=== PATIENT | female | born 1940 | race Caucasian/White ===

== ENCOUNTER → 2016-04-18 | Outpatient (CLI) | payer MEDICARE, BC | LOC: MW.CHORTHO 08:00 | PROVIDERS: ATTEND Physician Assistant | DX: M75.01 Adhesive capsulitis of right shoulder (principal) | CPT/HCPCS: G0463 ==

== ENCOUNTER 2016-06-12 18:34 | Observation (INO) | payer MEDICARE, BC ==
[2016-06-12] MEDS ORDERED: Sodium Chloride 0.9% 1,000 ML IV ONE ×2 (19:00→19:05)
[2016-06-12] MEDS ORDERED: Sodium Chloride 0.9% 10 ML Syringe FLUSH PRN ×2 (19:05)
[2016-06-12] MEDS ORDERED: Sodium Chloride 0.9% 2.5 ML Syringe FLUSH PRN ×2 (19:05)
[2016-06-12 19:24] LABS: CHLORIDE,CL 103 mmol/L (98-110); SODIUM,NA 140 mmol/L (136-146)
--- NOTE | 2016-06-12 19:37 | EDM.PDOC ---
ED HPI NEURO - General Chief Complaint: Neuro Symptoms/Deficits Stated Complaint: PT FELL AT HOME Time Seen by Provider: 06/12/16 18:35 Source of Information: Reports: EMS, Family History Limitations: Reports: Altered mental status - History of Present Illness INITIAL COMMENTS - FREE TEXT/NARRATIVE: HISTORY AND PHYSICAL: History of present illness: [75-year-old female with a history of depression on sertraline no other known medical problems or medications has lived alone and is ambulatory and functional with all her ADL now brought in by EMS after being found down unresponsive. Patient was last communicated with a known to be normal last night. Tonight she was unable to be reached and one daughter went to check on her she was found on the floor unconscious with agonal respirations. EMS was called and responded. Patient was intubated prehospital. GCS 3 prehospital and on arrival with right pupillary dilation consistent with herniation. Per EMS patient is full code and in my not present in ED yet for consultation. Review of systems: As per history of present illness and below otherwise all systems reviewed and negative. Past medical history: As per history of present illness and as reviewed below otherwise noncontributory. Surgical history: As per history of present illness and as reviewed below otherwise noncontributory. Social history: No reported history of drug or alcohol abuse. Family history: As per history of present illness and as reviewed below otherwise noncontributory. Physical exam: HEENT: Soft tissue swelling right for head and periorbital area. Right pupil 6 mm and unresponsive left pupil 4 mm and unresponsive. normocephalic, negative for conjunctival pallor or scleral icterus, mucous membranes moist, throat clear , neck supple, trachea midline, ET tube exiting mouth gurgling sound consistent with displaced tube versus balloon leak. Lungs: Mild bilateral rhonchi, breath sounds equal bilaterally, chest with no asymmetry. Heart: S1S2, regular, negative for clicks, rubs, or JVD. Abdomen: Soft, nondistended, Negative for masses or hepatosplenomegaly. Pelvis: Stable Genitourinary: Mild erythema of external genitalia consistent with tinea Rectal: Deferred. Extremities: Atraumatic, negative for cords or asymmetry bilateral feet plantarflex and cool. Neuro: GCS 3 . Pupils asymmetric with right pupil dilation and unresponsive. Diagnostics: [CT of the head with large right intraparenchymal bleed with obliteration of right lateral ventricle severe midline shift, no evidence of displaced cranial fracture] EKG with normal sinus tachycardia at [address] and T-wave findings no STEMI Therapeutics: [Endotracheal intubation performed on arrival, IV fluids initiated, systolic blood pressure initially 140 on reevaluation with hypotension IV fluids running. Impression: [Altered mental status Uncal herniation] Right-sided Intraparenchymal bleed Acute hemorrhagic CVA Plan: [Arrival history was provided patient was full code. Intubation was assessed and deemed to be esophageal so patient was intubated endotracheally. Bilateral breath sounds symmetrical. Patient was sent to CAT scan without delay. Family arrived in ED and case was discussed in confidential family room. They're aware of patient's immediately life-threatening critical illness and very grave prognosis. Daughter clarifies the patient is actually DO NOT RESUSCITATE and that she previously expressed those wishes multiple times. Family wishes not to discontinue ventilation and care at this point as they anticipate further family arriving to collaborate in decision-making and shared anticipatory grief. CT results with Large right intraparenchymal bleed identified and patient 's clinical evidence of uncal herniation. ] This discussed with Dr. 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 He is aware the patient is DO NOT RESUSCITATE and supportive care only. Family will communicate with him regarding shared decision-making with respect to possible discontinuation of care. Critical care 72 minutes. Definitive disposition and diagnosis as appropriate pending reevaluation and review of above. - Related Data Allergies/ADRs: Allergies Allergy/AdvReac Type Severity Reaction Status Date / Time hydrocodone Allergy Nausea Verified 09/08/15 15:15 levofloxacin [From Levaquin] Allergy Cannot Verified 09/08/15 14:05 Remember methylprednisolone Allergy Cannot Verified 09/08/15 14:05 Remember nitrofurantoin Allergy Cannot Verified 09/08/15 14:05 Remember Penicillins Allergy Cannot Verified 09/08/15 14:05 Remember simvastatin [From Zocor] Allergy Cannot Verified 09/08/15 14:05 Remember Sulfa (Sulfonamide Allergy Cannot Verified 09/08/15 14:05 Antibiotics) Remember see scanned sheet Allergy Other Uncoded 10/24/15 16:30 Home Meds: Home Meds Aspirin [Halfprin] 81 mg PO ONETIME 08/28/15 [History] Sertraline [Zoloft] 100 mg PO DAILY 08/28/15 [History] Cyclobenzaprine HCl 5 mg PO QAM PRN #45 tablet 03/09/16 [Rx] Past Medical History - Past Health History Medical/Surgical History: Denies Medical/Surgical History Genitourinary History: Reports: UTI, recurrent 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: Musculoskeletal History: Reports: Fracture Neurological History: Reports: Headaches, chronic Psychiatric History: Reports: Anxiety, Depression - Infectious Disease History Infectious Disease History: Reports: None Social & Family History - Family History Family Medical History: Noncontributory - Tobacco Use Smoking Status *Q: Never Smoker Second Hand Smoke Exposure: No - Recreational Drug Use Recreational Drug Use: No ED ROS GENERAL - Review of Systems Review Of Systems: See Below (Per history of present illness) ED EXAM, NEURO - Physical Exam Exam: See Below (Per history of present illness) Course - Orders/Labs/Meds Orders: Active Orders 24 hr Category Date Time Status EKG Documentation Completion [RC] STAT Care 06/12/16 19:05 Ordered Peripheral IV Care [RC] . DIRECTED Care 06/12/16 19:05 Ordered Chest 1V Frontal [CR] Stat Exams 06/12/16 19:05 Ordered Head wo Cont [CT] Stat Exams 06/12/16 19:05 Ordered CBC WITH AUTO DIFF [HEME] Stat Lab 06/12/16 19:05 Ordered COMPREHENSIVE METABOLIC PN,CMP [CHEM] Stat Lab 06/12/16 19:05 Ordered TROPONIN I [CHEM] Stat Lab 06/12/16 19:05 Ordered UA W/MICROSCOPIC [URIN] Stat Lab 06/12/16 19:05 Uncollected Sodium Chloride 0.9% [Normal Saline] 1,000 ml Med 06/12/16 19:05 Ordered IV .Bolus Sodium Chloride 0.9% [Saline Flush] Med 06/12/16 19:05 Ordered 10 ml FLUSH ASDIRECTED PRN Sodium Chloride 0.9% [Saline Flush] Med 06/12/16 19:05 Ordered 10 ml FLUSH ASDIRECTED PRN Sodium Chloride 0.9% [Saline Flush] Med 06/12/16 19:05 Ordered 2.5 ml FLUSH ASDIRECTED PRN Sodium Chloride 0.9% [Saline Flush] Med 06/12/16 19:05 Ordered 2.5 ml FLUSH ASDIRECTED PRN Peripheral IV Insertion Adult [OM.PC] Stat Oth 06/12/16 19:05 Ordered Medication Orders Sodium Chloride (Normal Saline) 1,000 mls @ 999 mls/hr IV .Bolus ONE Stop: 06/12/16 20:05 Sodium Chloride (Saline Flush) 10 ml FLUSH ASDIRECTED PRN PRN Reason: Keep Vein Open Sodium Chloride (Saline Flush) 2.5 ml FLUSH ASDIRECTED PRN PRN Reason: Keep Vein Open Sodium Chloride (Saline Flush) 10 ml FLUSH ASDIRECTED PRN PRN Reason: Keep Vein Open Sodium Chloride (Saline Flush) 2.5 ml FLUSH ASDIRECTED PRN PRN Reason: Keep Vein Open Meds: Medications Generic Name Dose Route Start Last Admin Trade Name Freq PRN Reason Stop Dose Admin Sodium Chloride 1,000 mls @ 999 mls/hr 06/12/16 19:05 Normal Saline IV 06/12/16 20:05 .Bolus ONE Sodium Chloride 10 ml 06/12/16 19:05 Saline Flush FLUSH ASDIRECTED PRN Keep Vein Open Sodium Chloride 2.5 ml 06/12/16 19:05 Saline Flush FLUSH ASDIRECTED PRN Keep Vein Open Sodium Chloride 10 ml 06/12/16 19:05 Saline Flush FLUSH ASDIRECTED PRN Keep Vein Open Sodium Chloride 2.5 ml 06/12/16 19:05 Saline Flush FLUSH ASDIRECTED PRN Keep Vein Open Departure - Departure Time of Disposition: 19:15 Disposition: Admitted As Inpatient 66 Condition: critical Clinical Impression: Intracranial bleed, Altered mental status, Hemorrhagic cerebrovascular accident (CVA), Uncal herniation - My Orders Last 24 Hours: My Active Orders 06/12/16 19:05 EKG Documentation Completion [RC] STAT Peripheral IV Care [RC] . DIRECTED Chest 1V Frontal [CR] Stat Head wo Cont [CT] Stat CBC WITH AUTO DIFF [HEME] Stat COMPREHENSIVE METABOLIC PN,CMP [CHEM] Stat TROPONIN I [CHEM] Stat UA W/MICROSCOPIC [URIN] Stat Sodium Chloride 0.9% [Normal Saline] 1,000 ml IV .Bolus Sodium Chloride 0.9% [Saline Flush] 10 ml FLUSH ASDIRECTED PRN Sodium Chloride 0.9% [Saline Flush] 10 ml FLUSH ASDIRECTED PRN Sodium Chloride 0.9% [Saline Flush] 2.5 ml FLUSH ASDIRECTED PRN Sodium Chloride 0.9% [Saline Flush] 2.5 ml FLUSH ASDIRECTED PRN Peripheral IV Insertion Adult [OM.PC] Stat - Assessment/Plan Last 24 Hours: My Active Orders 06/12/16 19:05 EKG Documentation Completion [RC] STAT Peripheral IV Care [RC] . DIRECTED Chest 1V Frontal [CR] Stat Head wo Cont [CT] Stat CBC WITH AUTO DIFF [HEME] Stat COMPREHENSIVE METABOLIC PN,CMP [CHEM] Stat TROPONIN I [CHEM] Stat UA W/MICROSCOPIC [URIN] Stat Sodium Chloride 0.9% [Normal Saline] 1,000 ml IV .Bolus Sodium Chloride 0.9% [Saline Flush] 10 ml FLUSH ASDIRECTED PRN Sodium Chloride 0.9% [Saline Flush] 10 ml FLUSH ASDIRECTED PRN Sodium Chloride 0.9% [Saline Flush] 2.5 ml FLUSH ASDIRECTED PRN Sodium Chloride 0.9% [Saline Flush] 2.5 ml FLUSH ASDIRECTED PRN Peripheral IV Insertion Adult [OM.PC] Stat
[2016-06-12] MEDS ORDERED: Sodium Chloride 0.9% 1,000 ML IV SCH (20:15)
--- NOTE | 2016-06-12 20:32 | PCM.HP ---
H&P History of Present Illness - General Date of Service: 06/12/16 Source of Information: Other (ER) History Limitations: Reports: Other (comatose) - History of Present Illness Initial Comments - Free Text/Narative: 75 y o woman checked by family because she didn't answer telephone found on floor incontinent and unresponsive. She was intubated by ambulance crew and brought to ER before patients DNR status was recognized. Head CT shows large Right parietal hemorrhage effacing the lateral ventricle with marked midline shift. She is admitted for terminal care until family can gather Onset of Symptoms: Reports: unknown/unsure Symptom Onset Date: 06/11/16 Duration of Symptoms: Reports: Hour(s): Location: Reports: generalized - Related Data Allergies/Adverse Reactions: Allergies Allergy/AdvReac Type Severity Reaction Status Date / Time hydrocodone Allergy Nausea Verified 09/08/15 15:15 levofloxacin [From Levaquin] Allergy Cannot Verified 09/08/15 14:05 Remember methylprednisolone Allergy Cannot Verified 09/08/15 14:05 Remember nitrofurantoin Allergy Cannot Verified 09/08/15 14:05 Remember Penicillins Allergy Cannot Verified 09/08/15 14:05 Remember simvastatin [From Zocor] Allergy Cannot Verified 09/08/15 14:05 Remember Sulfa (Sulfonamide Allergy Cannot Verified 09/08/15 14:05 Antibiotics) Remember see scanned sheet Allergy Other Uncoded 10/24/15 16:30 Home Medications: Home Meds Aspirin [Halfprin] 81 mg PO ONETIME 08/28/15 [History] Sertraline [Zoloft] 100 mg PO DAILY 08/28/15 [History] Cyclobenzaprine HCl 5 mg PO QAM PRN #45 tablet 03/09/16 [Rx] Past Medical History HEENT History: Reports: None Genitourinary History: Reports: None, UTI, recurrent 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: Musculoskeletal History: Reports: Fracture Neurological History: Reports: Headaches, chronic Psychiatric History: Reports: Anxiety, Depression - Infectious Disease History Infectious Disease History: Reports: None Social & Family History - Family History Family Medical History: Noncontributory - Tobacco Use Smoking Status *Q: Never Smoker Second Hand Smoke Exposure: No - Caffeine Use Caffeine Use: Reports: None - Recreational Drug Use Recreational Drug Use: No H&P Review of Systems - Review of Systems: Review Of Systems: See Below Exam - Exam Exam: See Below - Vital Signs Vital Signs: Last Vital Signs Temp 36.1 C 06/12/16 19:53 Pulse 93 06/12/16 19:53 Resp 12 06/12/16 19:53 BP 132/52 L 06/12/16 19:53 Pulse Ox 95 06/12/16 19:53 Weight: 68.3 kg - Exam Quality Assessment: other (intubated with periodic respirations) General: other (comatose) HEENT: Other (abrasion R face). No: PERRLA (anisocoria with R pupil larger) Neck: supple Lungs: Clear to auscultation Cardiovascular: regular rate Abdomen: soft, absent bowel sounds (Female) Exam: Deferred Rectal (Female) Exam: Deferred Neurological: Babinski (no response L upgoing toe R). No: normal tone ( incresed tone) - Patient Data Result Diagrams: 06/12/16 18:48 06/12/16 18:48 *Q Meaningful Use (ADM) - VTE *Q VTE Criteria *Q: - Stroke *Q Stroke Criteria *Q: - AMI *Q AMI Criteria *Q: Problem List Initiated/Reviewed/Updated: Yes Orders Last 24hrs: Active Orders 24 hr Category Date Time Status CPK [CREATINE KINASE,CK] [CHEM] Routine Lab 06/12/16 18:48 Received Sodium Chloride 0.9% [Normal Saline] 1,000 ml Med 06/12/16 20:15 Active IV ASDIRECTED Medication Orders Sodium Chloride (Normal Saline) 1,000 mls @ 150 mls/hr IV ASDIRECTED LENIN Last Admin: 06/12/16 20:01 Dose: 150 mls/hr Sodium Chloride (Saline Flush) 10 ml FLUSH ASDIRECTED PRN PRN Reason: Keep Vein Open Last Admin: 06/12/16 19:52 Dose: 10 ml Sodium Chloride (Saline Flush) 2.5 ml FLUSH ASDIRECTED PRN PRN Reason: Keep Vein Open Last Admin: 06/12/16 19:51 Dose: 2.5 ml Sodium Chloride (Saline Flush) 10 ml FLUSH ASDIRECTED PRN PRN Reason: Keep Vein Open Last Admin: 06/12/16 19:52 Dose: 10 ml Sodium Chloride (Saline Flush) 2.5 ml FLUSH ASDIRECTED PRN PRN Reason: Keep Vein Open Last Admin: 06/12/16 19:52 Dose: 2.5 ml Assessment/Plan Comment:: extensive intracranial bleed with probable herniation will continue ventilation, iv fluids as needed until family decides to withdraw all car
[2016-06-13 10:32] VITALS: BP 108/46
--- NOTE | 2016-06-13 11:05 | CT ---
EXAM DATE: 06/12/16 PATIENT'S AGE: 75 Patient: GISELL RAZO Facility: [place], [place] Site . Site : 1940 Study: CT Head STROKE PROTOCOL STROKE [id number]/2/2017 7:10:13 PM Ordering Physician: Doctor Nunez Final Report: INDICATIONS: Unresponsive, possibly since last night. TECHNIQUE: CT head without contrast. COMPARISON: None FINDINGS: There is a large ill-defined hemorrhage in the right frontoparietal region which measures a 9 x 5.8 cm on axial image 38. There is associated vasogenic edema, compression of the right lateral ventricle and 1.7 cm of right to left midline shift measured at the level of the septum pellucidum. Right uncal herniation is present as well. Mild intraventricular extension of blood products. There is asymmetric dilatation of the temporal horn of the left lateral ventricle along with ill-defined low-attenuation about the left lateral ventricle concerning for hydrocephalus and transependymal flow of CSF. Bone windows show no acute abnormality. IMPRESSION: Large intraparenchymal hemorrhage in the right frontoparietal region with associated 1.7 cm of right to left midline shift, uncal herniation and entrapment of the left lateral ventricle. Discussed with Dr. Najera at the time of dictation. Dictated by Sawyer Hoff MD @ 06/12/2016 7:24:24 PM Dictated by: Sawyer Hoff MD @ 06/12/2016 19:24:47 (Electronic Signature) Report Signed by Proxy. FABIANA
--- NOTE | 2016-06-13 11:06 | CR ---
EXAM DATE: 06/12/16 PATIENT'S AGE: 75 Patient: GISELL RAZO Facility: [place], [place] Site . Site : 1940 Study: XRay Chest [id number]/2/2017 7:12:56 PM Ordering Physician: Doctor Nunez Final Report: INDICATION: Post-intubation, unresponsive. Code stroke. TECHNIQUE: Chest radiograph 1 view COMPARISON: None FINDINGS: Endotracheal tube is present, tip 1.5 centimeters above the carinal. Linear scarring in the left midlung zone with mildly coarse lung markings. Mild degree of bilateral apical pleural thickening. No pneumothorax or definite pleural effusion. Heart and mediastinal contours within normal limits. IMPRESSION: 1. Likely underlying COPD with satisfactory placement of endotracheal tube. No focal pneumonia or pneumothorax. Dictated by Anatoliy Delgado MD @ 06/12/2016 7:23:59 PM Dictated by: Anatoliy Delgado MD @ 06/12/2016 19:24:05 (Electronic Signature) Report Signed by Proxy. FABIANA
[2016-06-13] MEDS ORDERED: LORazepam 2 MG/ML MDV IVPUSH PRN (13:43)
[2016-06-13] MEDS ORDERED: Morphine 2 MG/ML Syringe IVPUSH PRN (13:44)
--- NOTE | 2016-06-14 16:42 | PCM.DCSUM1 ---
<Jaiden Ramirez - Last Filed: 06/14/16 16:36> Discharge Summary - Hospital Course Free Text/Narrative:: Admission diagnoses: #1. Intracerebral hemorrhage with midline shift and right uncal herniation Discharge diagnoses: #2. Cause of : Intracerebral hemorrhage with respiratory failure. 75-year-old female that was initially admitted after being found unresponsive in her home and that required immediate intubation prior to presenting to the emergency room by EMS. Upon presenting to the emergency room the patient was stabilized and remained intubated. Head CT was done which showed a right frontoparietal hemorrhage measuring 9 x 6 cm. There was a 1.7 cm right to left midline shift. Right uncal herniation was present along with left lateral ventricle entrapment. The patient's pupils were dilated and fixed and nonresponsive. The patient was nonresponsive to verbal and painful stimulus. She was transferred to the ICU for monitoring. I intended to speak with our neurologist, Dr. Holcomb, but she was out of town. I did speak with Dr. Gonzalez, neurologist, from [place], [place] in regards to the CT findings and the neurological exam which I performed on the patient. Neurologically, the patient's pupils were dilated and fixed and nonresponsive. The patient had no gag reflex and no cough reflex. She also had decorticate posturing. I relayed these findings to Dr. Gonzalez and we discussed the CT results. I also informed Dr. Gonzalez that the family was thinking about removing life-sustaining measures and making the patient comfort care if the prognosis was not favorable. Given these findings, Dr. Gonzalez, believed that the prognosis was poor and that the patient would not recover from this and not regain consciousness. He voiced agreement that it was reasonable to extubate the patient and make her comfort care. I relayed this information to the family and they ultimately made the decision to extubate the patient and make her comfort care. 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 The family decided to not have the patient be an organ donor. Once this conversation was had, the family said their goodbyes and left the hospital. Prior to extubation, Ativan and morphine were made available to be used once the patient was extubated if needed. The patient was extubated at 1:46 PM and at 2:03 PM asystole was noted on the media monitor and heart tones were not audible. The patient was pronounced by the ICU nurse and also the nursing fish hatchery supervisor. I did discuss this case in depth with Jaja Chaney and our nursing fish hatchery supervisor before the patient was extubated to ensure that this process was handled ethnically. - Discharge Data Discharge Date: 06/13/16 Discharge Disposition: 20 Preliminary Cause of *Q: Other_Special Instruction (intracerbral hemorrhage with respiratory failure) Event(s) Leading to Patient's *Q: intracerberal hemorrhage Condition: - Discharge Diagnosis/Problem(s) (1) Intracranial bleed SNOMED Code(s): 8720537 ICD Code: I62.9 - NONTRAUMATIC INTRACRANIAL HEMORRHAGE, UNSPECIFIED Status : Acute - Discharge Plan Home Medications: Home Meds Aspirin [Halfprin] 81 mg PO ONETIME 08/28/15 [History] Sertraline [Zoloft] 100 mg PO DAILY 08/28/15 [History] Cyclobenzaprine HCl 5 mg PO QAM PRN #45 tablet 03/09/16 [Rx] Referrals: PCP,None [Primary Care Provider] - - Discharge Summary/Plan Comment DC Time >30 min.: No Discharge Summary/Plan Comment: Admission diagnoses: #1. Intracerebral hemorrhage with midline shift and right uncal herniation. Discharge diagnoses: #2. Cause of : Intracerebral hemorrhage with respiratory failure. 75-year-old female that was initially admitted after being found unresponsive in her home and that required immediate intubation prior to presenting to the emergency room by EMS. Upon presenting to the emergency room the patient was stabilized and remained intubated. Head CT was done which showed a right frontoparietal hemorrhage measuring 9 x 6 cm. There was a 1.7 cm right to left midline shift. Right uncal herniation was present along with left lateral ventricle entrapment. The patient's pupils were dilated and fixed and nonresponsive. The patient was nonresponsive to verbal and painful stimulus. She was transferred to the ICU for monitoring. I intended to speak with our neurologist, Dr. Holcomb, but she was out of town. I did speak with Dr. Gonzalez, neurologist, from [place], [place] in regards to the CT findings and the neurological exam which I performed on the patient. Neurologically, the patient's pupils were dilated and fixed and nonresponsive. The patient had no gag reflex and no cough reflex. She also had decorticate posturing. I relayed these findings to Dr. Gonzalez and we discussed the CT results. I also informed Dr. Gonzalez that the family was thinking about removing life-sustaining measures and making the patient comfort care if the prognosis was not favorable. Given these findings, Dr. Gonzalez, believed that the prognosis was poor and that the patient would not recover from this and not regain consciousness. He voiced agreement that it was reasonable to extubate the patient and make her comfort care. I relayed this information to the family and they ultimately made the decision to extubate the patient and make her comfort care. 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 The family decided to not have the patient be an organ donor. Once this conversation was had, the family said their goodbyes and left the hospital. Prior to extubation, Ativan and morphine were made available to be used once the patient was extubated if needed. The patient was extubated at 1:46 PM and at 2:03 PM asystole was noted on the media monitor and heart tones were not audible. The patient was pronounced by the ICU nurse and also the nursing fish hatchery supervisor. I did discuss this case in depth with Jaja Chaney and our nursing fish hatchery supervisor before the patient was extubated to ensure that this process was handled ethnically. - Patient Data Vitals - Most Recent: Last Vital Signs Temp 101.5 F H 06/13/16 04:00 Pulse 97 06/12/16 20:38 Resp 23 H 06/13/16 10:00 BP 108/46 L 06/13/16 10:00 Pulse Ox 90 L 06/13/16 10:00 Weight - Most Recent: 68.6 kg Med Orders - Current: Current Medications Discontinued Medications Sodium Chloride (Normal Saline) 1,000 mls @ 999 mls/hr IV .Bolus ONE Stop: 06/12/16 20:05 Last Admin: 06/12/16 19:00 Dose: 999 mls/hr Sodium Chloride (Normal Saline) 1,000 mls @ 999 mls/hr IV .Bolus ONE Stop: 06/12/16 20:00 Last Admin: 06/12/16 19:00 Dose: 999 mls/hr Sodium Chloride (Normal Saline) 1,000 mls @ 125 mls/hr IV ASDIRECTED LENIN Last Admin: 06/12/16 20:01 Dose: 150 mls/hr Lorazepam (Ativan) 1 mg IVPUSH Q4H PRN PRN Reason: Agitation Morphine Sulfate (Morphine) 2 mg IVPUSH Q1H PRN PRN Reason: Shortness of Breath Sodium Chloride (Saline Flush) 10 ml FLUSH ASDIRECTED PRN PRN Reason: Keep Vein Open Last Admin: 06/12/16 19:52 Dose: 10 ml Sodium Chloride (Saline Flush) 2.5 ml FLUSH ASDIRECTED PRN PRN Reason: Keep Vein Open Last Admin: 06/12/16 19:51 Dose: 2.5 ml Sodium Chloride (Saline Flush) 10 ml FLUSH ASDIRECTED PRN PRN Reason: Keep Vein Open Last Admin: 06/12/16 19:52 Dose: 10 ml Sodium Chloride (Saline Flush) 2.5 ml FLUSH ASDIRECTED PRN PRN Reason: Keep Vein Open Last Admin: 06/12/16 19:52 Dose: 2.5 ml *Q Meaningful Use (DIS) - VTE *Q VTE Criteria *Q: - Stroke *Q Stroke Criteria *Q: - AMI *Q AMI Criteria *Q: <Jeremy Romano - Last Filed: 06/14/16 17:30> Discharge Summary - Hospital Course Free Text/Narrative:: I was present with the resident during the history and exam. I discussed the case with the resident and agree with the findings and plan as documented in the resident's note - Patient Data Vitals - Most Recent: Last Vital Signs Temp 38.6 C H 06/13/16 04:00 Pulse 97 06/12/16 20:38 Resp 23 H 06/13/16 10:00 BP 108/46 L 06/13/16 10:00 Pulse Ox 90 L 06/13/16 10:00 Med Orders - Current: Current Medications Discontinued Medications Sodium Chloride (Normal Saline) 1,000 mls @ 999 mls/hr IV .Bolus ONE Stop: 06/12/16 20:05 Last Admin: 06/12/16 19:00 Dose: 999 mls/hr Sodium Chloride (Normal Saline) 1,000 mls @ 999 mls/hr IV .Bolus ONE Stop: 06/12/16 20:00 Last Admin: 06/12/16 19:00 Dose: 999 mls/hr Sodium Chloride (Normal Saline) 1,000 mls @ 125 mls/hr IV ASDIRECTED LENIN Last Admin: 06/12/16 20:01 Dose: 150 mls/hr Lorazepam (Ativan) 1 mg IVPUSH Q4H PRN PRN Reason: Agitation Morphine Sulfate (Morphine) 2 mg IVPUSH Q1H PRN PRN Reason: Shortness of Breath Sodium Chloride (Saline Flush) 10 ml FLUSH ASDIRECTED PRN PRN Reason: Keep Vein Open Last Admin: 06/12/16 19:52 Dose: 10 ml Sodium Chloride (Saline Flush) 2.5 ml FLUSH ASDIRECTED PRN PRN Reason: Keep Vein Open Last Admin: 06/12/16 19:51 Dose: 2.5 ml Sodium Chloride (Saline Flush) 10 ml FLUSH ASDIRECTED PRN PRN Reason: Keep Vein Open Last Admin: 06/12/16 19:52 Dose: 10 ml Sodium Chloride (Saline Flush) 2.5 ml FLUSH ASDIRECTED PRN PRN Reason: Keep Vein Open Last Admin: 06/12/16 19:52 Dose: 2.5 ml *Q Meaningful Use (DIS) - VTE *Q VTE Criteria *Q: - Stroke *Q Stroke Criteria *Q: - AMI *Q AMI Criteria *Q:
== END 2016-06-13 15:00 | disposition expired ==
LOC: MW.ED 18:34 → MW.ICU 19:23 → UNDOADMIN 19:23 → INTOOBSV 22:05 → MW.ICU 22:05
PROVIDERS: ADMIT Internal Medicine; ATTEND Internal Medicine
DX: I61.8 Other nontraumatic intracerebral hemorrhage (principal); F41.9 Anxiety disorder, unspecified; F32.9 Major depressive disorder, single episode, unspecified; Z87.440 Personal history of urinary (tract) infections; Z87.891 Personal history of nicotine dependence; Z88.0 Allergy status to penicillin; Z88.1 Allergy status to other antibiotic agents; Z88.2 Allergy status to sulfonamides; Z88.5 Allergy status to narcotic agent; Z88.8 Allergy status to other drugs, medicaments and biological substances; Z79.82 Long term (current) use of aspirin; Z79.899 Other long term (current) drug therapy
CPT/HCPCS: 36415; 70450; 71010; 80053; 81001; 82550; 84484; 85025; 93005; 94002; 94003; 96360; 96361; 99285; G0378; J7040; 99291